=== PATIENT | male | born 1960 | race Asian ===

== ENCOUNTER 2018-01-31 06:56 | Inpatient (IN) | payer MEDICAID, OTHER ==
[2018-01-31] VITALS (20 sets, daily range): BP systolic 133–186; BP diastolic 74–106
[~2018-01-31] VITALS: Ht 167.6 cm; Wt 61.7 kg
[2018-01-31] MEDS ORDERED: SODIUM CHLORIDE 0.9% 1,000 ML IV ONE ×2 (07:07→07:15)
[2018-01-31 07:24] LABS: HEMOGLOBIN 14.1 g/dL (13.5-17.5); MEAN CORPUSCULAR HGB CONC 34.5 G/dL (31.0-37.0); MEAN CORPUSCULAR VOLUME 96 fL (80-100); RED BLOOD CELL COUNT(AUTO) 4.29 MIL/uL (4.50-5.90); RED CELL DISTRIBUTION WIDTH 13.5 % (11.5-14.5)
[2018-01-31 07:27] LABS: GLUCOSE,POINT OF CARE 121 MG/DL (70-110)
[2018-01-31] MEDS ORDERED: HEPARIN SODIUM,PORCINE 5,000 UNITS/ML VIAL ONE (07:29)
[2018-01-31] MEDS ORDERED: ASPIRIN 325 MG TABLET PO ONE (07:30)
[2018-01-31] MEDS ORDERED: NITROGLYCERIN 0.3 MG SUBLINGUAL TABLET #100 SL ONE (07:30)
[2018-01-31] MEDS ORDERED: TICAGRELOR 90 MG TABLET PO ONE (07:30)
[2018-01-31] MEDS ORDERED: HEPARIN SODIUM,PORCINE 5,000 UNITS/ML VIAL IVP ONE (07:30)
[2018-01-31] MEDS ORDERED: NITROGLYCERIN 2% (1 GM=INCH) PACKET TP ONE (07:30)
[2018-01-31 07:39] LABS: ANION GAP 10 mmol/L (8-16); CALCIUM, TOTAL 8.9 mg/dL (8.8-10.5); CARBON DIOXIDE 26 mmol/L (22-29); CHLORIDE 101 mmol/L (98-107); GLOMERULAR FILTR. RATE CALC > 60 mL/min (>60); GLUCOSE,RANDOM 129 mg/dL (70-110); POTASSIUM 3.4 mmol/L (3.5-5.1); SODIUM SERUM 137 mmol/L (136-145); UREA NITROGEN, BLOOD 15 mg/dL (7-18)
[2018-01-31] MEDS ORDERED: LIDOCAINE HCL/PF 1% 30 ML VIAL ONE (07:41)
[2018-01-31] MEDS ORDERED: SODIUM BICARBONATE 50 MEQ/50 ML VIAL ONE (07:41)
[2018-01-31] MEDS ORDERED: IOHEXOL 300 MG/ML 150 ML VIAL ONE (07:41)
[2018-01-31 07:44] LABS: ALANINE AMINOTRANSFERASE 225 U/L (12-78); ALBUMIN 2.5 g/dL (3.4-5.0); ALKALINE PHOSPHATASE 256 U/L (46-116); ASPARTATE AMINOTRANSFERASE 179 U/L (15-37); BILIRUBIN,TOTAL 2.2 mg/dL (0.1-1.0)
[2018-01-31 07:50] LABS: PLATELET COUNT (AUTO) 84 K/uL (150-450)
[2018-01-31] MEDS ORDERED: MORPHINE SULFATE 2 MG/ML SYRINGE ONE (07:53)
[2018-01-31 07:54] LABS: BAND NEUTROPHILS % (MANUAL) 8 % (0-5); EOSINOPHILS % (MANUAL) 1 % (1-6); LYMPHOCYTES % (MANUAL) 21 % (22-44); MONOCYTES % (MANUAL) 4 % (2-9); SEGMENTED NEUTROPHILS % 66 % (40-70)
[2018-01-31] MEDS ORDERED: MORPHINE SULFATE 4 MG/ML SYRINGE IVP ONE (08:15)
[2018-01-31] MEDS ORDERED: MORPHINE SULFATE 2 MG/ML SYRINGE IVP ONE (08:15)
[2018-01-31] MEDS ORDERED: MIDAZOLAM HCL 2 MG/2 ML VIAL ONE (08:17)
[2018-01-31] MEDS ORDERED: FentaNYL CITRATE-PF 100 MCG/2 ML VIAL ONE (08:17)
[2018-01-31] MEDS ORDERED: VERAPAMIL HCL 2.5 MG/ML 2 ML VIAL ONE (08:18)
[2018-01-31] MEDS ORDERED: NITROGLYCERIN 50 MG/D5% WATER 250 ML ONE (08:18)
[2018-01-31] MEDS ORDERED: IOHEXOL 300 MG/ML 100 ML VIAL ONE (08:18)
[2018-01-31 08:21] LABS: CREATINE KINASE, TOTAL 21 U/L (39-308)
[2018-01-31 08:28] LABS: CREATINE KINASE MB < 0.5 ng/mL (0-5)
[2018-01-31] MEDS ORDERED: 0.9% SODIUM CHLORIDE 10 ML SYRINGE IVP PRN ×2 (08:30→13:00)
[2018-01-31] MEDS ORDERED: ONDANSETRON HCL 4 MG/2 ML VIAL IVP PRN ×2 (08:30→13:00)
[2018-01-31] MEDS ORDERED: ACETAMINOPHEN 325 MG TABLET PO PRN (08:30)
[2018-01-31] MEDS ORDERED: SODIUM CHLORIDE 0.9% 500 ML IV ONE (08:36)
[2018-01-31] MEDS ORDERED: HEPARIN SODIUM 1000 UNITS/NS 1,000 ML IARTER ONE (08:36)
[2018-01-31] MEDS ORDERED: MIDAZOLAM HCL 2 MG/2 ML VIAL IVP ONE (08:45)
[2018-01-31] MEDS ORDERED: IOHEXOL 300 MG/ML 150 ML VIAL IARTER ONE (08:45)
[2018-01-31] MEDS ORDERED: LIDOCAINE 1% 30 ML/SOD BICARB 8.4% 4 ML SQ ONE (08:45)
[2018-01-31] MEDS ORDERED: FentaNYL CITRATE-PF 100 MCG/2 ML VIAL IVP ONE (08:45)
[2018-01-31] MEDS ORDERED: IOHEXOL 300 MG/ML 50 ML VIAL ONE (08:58)
[2018-01-31] MEDS ORDERED: IOHEXOL 300 MG/ML 50 ML VIAL ICOR ONE (09:15)
[2018-01-31] MEDS ORDERED: NITROGLYCERIN/D5W 50 MG/250 ML IV BOTTLE ICOR ONE (09:15)
[2018-01-31] MEDS ORDERED: HYDROCODONE/ACETAMINOPHEN 5-325 MG TABLET PO PRN (12:00)
[2018-01-31] MEDS ORDERED: POTASSIUM CHLORIDE 20 MEQ ER TABLET PO PRN ×2 (13:00→19:30)
[2018-01-31] MEDS ORDERED: METOPROLOL TARTRATE 25 MG TABLET PO SCH (13:00)
[2018-01-31] MEDS ORDERED: ZOLPIDEM TARTRATE 5 MG TABLET PO PRN (13:00)
[2018-01-31] MEDS: PANTOPRAZOLE SODIUM 40 MG DR TABLET PO SCH (13:03)
[2018-01-31] MEDS: DOCUSATE SODIUM 100 MG CAPSULE PO SCH ×3 (13:03→21:03)
[2018-01-31 15:53] LABS: APPEARANCE,URINE CLEAR (CLEAR); BILIRUBIN,URINE NEGATIVE (NEGATIVE); GLUCOSE, URINE (UA) NEGATIVE (NEGATIVE); KETONES,URINE TRACE mg/dL (NEGATIVE); LEUKOCYTE ESTERASE ,URINE NEGATIVE (NEGATIVE); NITRATE,URINE NEGATIVE (NEGATIVE); OCCULT BLOOD,URINE NEGATIVE (NEGATIVE); PROTEIN,URINE NEGATIVE (NEGATIVE)
[2018-01-31] MEDS: HYDROCODONE/ACETAMINOPHEN 5-325 MG TABLET PO PRN (16:01)
[2018-01-31 16:09] LABS: BACTERIA,URINE None Seen /HPF (None Seen); RBC,URINE None Seen /HPF (0-2); SQUAMOUS EPITHELIAL CELL,UR Rare /LPF (None Seen); WBC,URINE 0-2 /HPF (0-5)
[2018-01-31] MEDS: ACETAMINOPHEN 325 MG TABLET PO PRN (16:35)
[2018-01-31 18:10] LABS: BASOPHILS % (AUTO) 0.4 % (0.0-2.0); EOSINOPHILS % (AUTO) 0.7 % (1.0-6.0); HEMATOCRIT 38.4 % (41-53); HEMOGLOBIN 13.6 g/dL (13.5-17.5); LYMPHOCYTES # (AUTO) 1.3 K/uL (1.0-4.8); LYMPHOCYTES % (AUTO) 13.8 % (22.0-44.0); MEAN CORPUSCULAR HEMOGLOBIN 33.4 pg (26.0-34.0); MEAN CORPUSCULAR HGB CONC 35.4 G/dL (31.0-37.0); MEAN CORPUSCULAR VOLUME 94 fL (80-100); MONOCYTES # (AUTO) 0.7 K/uL (0.1-1.0); MONOCYTES % (AUTO) 7.6 % (2.0-9.0); NEUTROPHILS # (AUTO) 7.4 K/uL (1.8-7.7); NEUTROPHILS % (AUTO) 77.5 % (40.0-70.0); PLATELET COUNT (AUTO) 85 K/uL (150-450); RED BLOOD CELL COUNT(AUTO) 4.07 MIL/uL (4.50-5.90); RED CELL DISTRIBUTION WIDTH 13.4 % (11.5-14.5)
[2018-01-31 18:18] LABS: ANION GAP 10 mmol/L (8-16); CALCIUM, TOTAL 8.8 mg/dL (8.8-10.5); CARBON DIOXIDE 26 mmol/L (22-29); CHLORIDE 98 mmol/L (98-107); CREATININE 0.84 mg/dL (0.60-1.30); GLOMERULAR FILTR. RATE CALC > 60 mL/min (>60); GLUCOSE,RANDOM 124 mg/dL (70-110); POTASSIUM 3.6 mmol/L (3.5-5.1); SODIUM SERUM 134 mmol/L (136-145); UREA NITROGEN, BLOOD 10 mg/dL (7-18)
[2018-01-31] MEDS: METOPROLOL TARTRATE 25 MG TABLET PO SCH (21:04)
[2018-01-31] MEDS ORDERED: VANCOMYCIN HCL 1.25 GM in DEXTROSE 5%-WATER 250 ML IV ONE (21:30)
[2018-01-31] MEDS ORDERED: SODIUM CHLORIDE 0.9% 250 ML IV ONE (21:36)
[2018-01-31] MEDS: CefTAZidime PENTAHYDRATE 2 GM in DEXTROSE 5%-WATER 50 ML IV SCH (21:40)
[2018-01-31] MEDS: POTASSIUM CHL 10 MEQ/WATER 50 ML IV PRN ×2 (21:41→22:55)
[2018-02-01] VITALS: BP 154/78
[2018-02-01] MEDS: POTASSIUM CHL 10 MEQ/WATER 50 ML IV PRN (00:38)
[2018-02-01 04:00] VITALS: BP 140/82
[2018-02-01 04:50] LABS: BASOPHILS % (AUTO) 0.1 % (0.0-2.0); EOSINOPHILS % (AUTO) 0.6 % (1.0-6.0); HEMATOCRIT 37.7 % (41-53); HEMOGLOBIN 13.4 g/dL (13.5-17.5); LYMPHOCYTES # (AUTO) 1.3 K/uL (1.0-4.8); MEAN CORPUSCULAR HEMOGLOBIN 33.8 pg (26.0-34.0); MEAN CORPUSCULAR HGB CONC 35.5 G/dL (31.0-37.0); MEAN CORPUSCULAR VOLUME 95 fL (80-100); MONOCYTES # (AUTO) 1.4 K/uL (0.1-1.0); MONOCYTES % (AUTO) 13.3 % (2.0-9.0); NEUTROPHILS # (AUTO) 7.5 K/uL (1.8-7.7); PLATELET COUNT (AUTO) 80 K/uL (150-450); RED BLOOD CELL COUNT(AUTO) 3.96 MIL/uL (4.50-5.90); RED CELL DISTRIBUTION WIDTH 13.5 % (11.5-14.5)
[2018-02-01 05:10] LABS: ALANINE AMINOTRANSFERASE 148 U/L (12-78); ALBUMIN 2.2 g/dL (3.4-5.0); ALKALINE PHOSPHATASE 216 U/L (46-116); ANION GAP 8 mmol/L (8-16); ASPARTATE AMINOTRANSFERASE 90 U/L (15-37); BILIRUBIN,TOTAL 2.4 mg/dL (0.1-1.0); CALCIUM, TOTAL 8.7 mg/dL (8.8-10.5); CARBON DIOXIDE 27 mmol/L (22-29); CHLORIDE 98 mmol/L (98-107); CREATININE 0.85 mg/dL (0.60-1.30); GLOMERULAR FILTR. RATE CALC > 60 mL/min (>60); GLUCOSE,RANDOM 205 mg/dL (70-110); POTASSIUM 3.9 mmol/L (3.5-5.1); SODIUM SERUM 133 mmol/L (136-145); UREA NITROGEN, BLOOD 11 mg/dL (7-18)
[2018-02-01] MEDS: CefTAZidime PENTAHYDRATE 2 GM in DEXTROSE 5%-WATER 50 ML IV SCH (05:22)
[2018-02-01] MEDS: HYDROCODONE/ACETAMINOPHEN 5-325 MG TABLET PO PRN (05:33)
[2018-02-01] MEDS ORDERED: MAGNESIUM SULFATE 2 GM in DEXTROSE 5%-WATER 50 ML IV PRN (07:15)
[2018-02-01] MEDS ORDERED: MAGNESIUM OXIDE 400 MG TABLET PO PRN (07:15)
[2018-02-01] MEDS ORDERED: MAGNESIUM SULFATE 4 GM/WATER 100 ML IV PRN (07:15)
[2018-02-01 08:00] VITALS: BP 132/87
[2018-02-01] MEDS ORDERED: VANCOMYCIN HCL 1 GM/D5% WATER 200 ML IV SCH (08:00)
[2018-02-01] MEDS ORDERED: VANCOMYCIN HCL 1.5 GM in DEXTROSE 5%-WATER 250 ML IV SCH (08:00)
[2018-02-01] MEDS: DOCUSATE SODIUM 100 MG CAPSULE PO SCH (08:22)
[2018-02-01] MEDS: PANTOPRAZOLE SODIUM 40 MG DR TABLET PO SCH (08:22)
[2018-02-01] MEDS: ACETAMINOPHEN 325 MG TABLET PO PRN (08:23)
[2018-02-01] MEDS: METOPROLOL TARTRATE 25 MG TABLET PO SCH (08:23)
[2018-02-01] MEDS ORDERED: AmLODIPine BESYLATE 2.5 MG TABLET PO SCH (09:00)
[2018-02-01] MEDS ORDERED: ISOSORBIDE MONONITRATE 30 MG ER TABLET PO SCH (09:00)
[2018-02-01] MEDS ORDERED: ATORVASTATIN CALCIUM 40 MG TABLET PO SCH (09:00)
[2018-02-01] MEDS ORDERED: ASPIRIN 81 MG EC TABLET PO SCH (09:00)
[2018-02-01] MEDS ORDERED: WATER IV SCH ×2 (13:00)
[2018-02-01] MEDS ORDERED: DEXTROSE 5% IV SCH ×2 (13:00)
[2018-02-01] MEDS ORDERED: CEFTAZIDIME PENTAHYDRATE IV SCH ×2 (13:00)
== END 2018-02-01 11:25 | disposition short-term general hospital (02) | DRG 190 ==
LOC: EMS 06:58 → ICU 07:47
PROVIDERS: ADMIT Internal Medicine; ATTEND Internal Medicine
PROC: 4A023N7 Measurement of Cardiac Sampling and Pressure, Left Heart, Percutaneous Approach (ICD-10-PCS; principal; 2018-01-31)
PROC: B2151ZZ Fluoroscopy of Left Heart using Low Osmolar Contrast (ICD-10-PCS; 2018-01-31)
PROC: B2111ZZ Fluoroscopy of Multiple Coronary Arteries using Low Osmolar Contrast (ICD-10-PCS; 2018-01-31)
PROC: B41F1ZZ Fluoroscopy of Right Lower Extremity Arteries using Low Osmolar Contrast (ICD-10-PCS; 2018-01-31)
PROC: B3101ZZ Fluoroscopy of Thoracic Aorta using Low Osmolar Contrast (ICD-10-PCS; 2018-01-31)
DX: I21.09 ST elevation (STEMI) myocardial infarction involving other coronary artery of anterior wall (principal); R65.10 Systemic inflammatory response syndrome (SIRS) of non-infectious origin without acute organ dysfunction; D69.6 Thrombocytopenia, unspecified; I10 Essential (primary) hypertension; I16.0 Hypertensive urgency; I25.10 Atherosclerotic heart disease of native coronary artery without angina pectoris; E78.5 Hyperlipidemia, unspecified; F17.210 Nicotine dependence, cigarettes, uncomplicated; R73.9 Hyperglycemia, unspecified
CPT/HCPCS: 82948; 83735; 84145; 87040; 87081; 87205; 93005; 93306; 96361; 96374; 96375; 99291; J0713; J1644; J2250; J2270; J3010; J3370; J3475; J3480; J3490; J7030; J7050; J7060; Q9967